=== PATIENT | female | born 1975 | race Hispanic/Latino ===

== ENCOUNTER 2019-09-18 23:09 | Emergency (ER) | payer SELFPAY | END 2019-09-19 00:25 | disposition home or self-care (01) | LOC: ERS 23:09 | DX: M79.622 Pain in left upper arm (principal); S42.302D Unspecified fracture of shaft of humerus, left arm, subsequent encounter for fracture with routine healing; F32.9 Major depressive disorder, single episode, unspecified; Z79.899 Other long term (current) drug therapy; X58.XXXD Exposure to other specified factors, subsequent encounter | CPT/HCPCS: 99281 ==

== ENCOUNTER 2019-09-29 17:47 | Inpatient (IN) | payer OTHER, SELFPAY ==
[2019-09-29] MEDS ORDERED: HYDROcodone/Acetaminophen 10/325 mg Tablet ONE (18:45)
[2019-09-29 19:04] LABS: Bacteria/HPF None Seen HPF (None Seen); Bilirubin Negative (Negative); Blood, Urine Negative (Negative); Clarity Turbid (Clear); Glucose, Urine (Dipstick) Normal (Negative); Leukocyte 250 Leu/uL (Negative); Nitrite Negative (Negative); Protein, Urine (Dipstick) Negative (Neg-Trace); RBC/HPF 0-3 HPF (0-3); Squamous Epithelial 0-3 HPF (0-3); Urobilinogen Normal mg/dL (Less than 2); WBC/HPF 21-50 HPF (0-3)
--- NOTE | 2019-09-29 19:14 | RAD ---
LEFT ELBOW TWO VIEW: 09/29/19 HISTORY: Injury. COMPARISON: None. FINDINGS: No significant joint effusion. No acute displaced fracture or malalignment. Small capitellar osteophyte formation. IMPRESSION: 1. No acute osseous abnormality. 2. Mild dorsal soft tissue swelling about the proximal forearm. POS: HOME
--- NOTE | 2019-09-29 19:17 | RAD ---
LEFT WRIST TWO VIEW: 09/29/19 HISTORY: Injury. COMPARISON: None. FINDINGS: Transversely oriented fracture of the distal radial metaphysis. There is dorsal angulation and displa cement one half shaft width as well as lateral displacement. Mild widening of the scapholunate interval. There is an oblique fracture of the fourth metacarpal dis selwyn diaphysis. Age indeterminate injury of the ulnar styloid process. IMPRESSION: 1. Displaced distal radial metaphyseal fracture as described. 2. Oblique fracture of the ring finger metacarpal neck. 3. Age indeterminate fracture of the ulnar styloid process. 4. Mild widening of the scapholunate interval. POS: HOME
[2019-09-29] MEDS ORDERED: Ondansetron PF 4 MG/2 ML Vial ONE (19:56)
[2019-09-29] MEDS ORDERED: Morphine 4 MG/ML VIAL ONE ×2 (19:56→23:11)
[2019-09-29] MEDS ORDERED: Lidocaine 1% w/Epinephrine 1:100K 20 ML VIAL ONE (19:56)
[2019-09-29] MEDS ORDERED: Lorazepam 2 MG/ML VIAL ONE (21:14)
--- NOTE | 2019-09-29 21:38 | RAD ---
XR Wrist Lt 2 View: 09/29/2019 9:23 PM CLINICAL INDICATION: Post reduction COMPARISON: Prior exam dated September 29, 2019 6:20 PM. FINDINGS: Bones: Mildly displaced distal radial fracture is unchanged in position and alignment. Obliquely terry ented ring finger metacarpal neck fracture is unchanged. Age-indeterminate ulnar styloid process fracture is unchanged. Soft tissue swelling persists. Joints: Joints space is preserved.. Soft Tissue: Persistent soft tissue swelling. IMPRESSION: Stable exam.
--- NOTE | 2019-09-29 22:33 | RAD ---
XR Wrist Lt 2 View: 09/29/2019 10:06 PM CLINICAL INDICATION: Post reduction COMPARISON: Prior exam dated September 29, 2019. FINDINGS: Bones: There is been interval splinting of the distal radius fracture, ulnar styloid fracture and ri ng finger metacarpal fracture. Fracture alignment appears stable. Joints: Joints space is preserved.. Soft Tissue: Normal.. IMPRESSION: Interval splinting.
[2019-09-30 00:15] LABS: #Basophils 0.2 thou/uL (0.0-0.2); #Eosinphils 0.2 thou/uL (0.0-0.7); #Lymphocytes 3.7 thou/uL (1.20-3.40); #Monocytes 0.4 thou/uL (0.11-0.59); #Neutrophils 3.2 thou/uL (1.40-6.50); %Basophils 2.8 % (0.0-1.0); %Eosinophils 3.1 % (0.0-10.0); %Lymphocytes 47.8 % (21.0-51.0); %Neutrophils 41.4 % (42.0-75.0); Mean Corpuscular HGB CONC 32.9 g/dL (32.0-36.0); Mean Corpuscular Hemoglobin 31.5 pg (27.0-31.0); Mean Corpuscular Volume 95.7 fL (78.0-98.0); Platelet Count 128 thou/uL (130-400); Red Blood Cell (RBC) Count 3.16 mill/uL (4.20-5.40); White Blood Cell (WBC) Count 7.6 thou/uL (4.8-10.8)
[2019-09-30 00:36] LABS: ALT (SGPT) 10 U/L (8-55); AST (SGOT) 10 U/L (5-34); Albumin 2.5 g/dL (3.5-5.0); Alkaline Phosphatase 61 U/L (40-110); Anion Gap 8 mmol/L (10-20); BUN (Urea Nitrogen) 11 mg/dL (7.0-18.7); Bilirubin, Total 0.3 mg/dL (0.2-1.2); Calc. Creatinine Clearance 0 mL/min (70-130); Carbon Dioxide 15 mmol/L (22-29); Chloride 120 mmol/L (98-107); Estimated GFR-MDRD Greater than 90; Globulin 1.9 g/dL (2.4-3.5); Glucose 119 mg/dL (70-105); Magnesium 1.2 mg/dL (1.6-2.6); Protein, Total 4.4 g/dL (6.0-8.3); Sodium 141 mmol/L (136-145)
[2019-09-30 00:41] LABS: Calcium 5.4 mg/dL (7.8-10.44); Potassium 2.3 mmol/L (3.5-5.1)
[2019-09-30] MEDS ORDERED: Dextrose 50% Abboject 50 ML SYRINGE SLOW IVP PRN (00:45)
[2019-09-30] MEDS ORDERED: traMADol HCl 50 MG TAB PO PRN (00:45)
[2019-09-30] MEDS ORDERED: Cyclobenzaprine 10 MG TAB PO PRN (00:45)
[2019-09-30] MEDS ORDERED: Dextrose 5% in Water 1,000 ML IV PRN (00:45)
[2019-09-30] MEDS ORDERED: Ondansetron PF 4 MG/2 ML Vial IVP PRN (00:45)
[2019-09-30] MEDS ORDERED: Ondansetron ODT 4 MG TAB PO PRN (00:45)
[2019-09-30] MEDS ORDERED: Acetaminophen 500 MG TAB PO SCH (01:00)
[2019-09-30] MEDS ORDERED: Ketorolac Tromethamine 30 MG/ML VIAL IVP SCH (01:00)
[2019-09-30 01:04] LABS: Phosphorus 2.8 mg/dL (2.3-4.7)
[2019-09-30] MEDS: cefTRIAXone\\ROCEPHIN 1 GM in Sodium Chloride 0.9% 100 ML IVPB SCH (01:05)
--- NOTE | 2019-09-30 01:25 | HP ---
REQUESTING PHYSICIAN: Dr. Bauer. ATTENDING SURGEON: Dr. Lara. CONSULTATION: Orthopedics, Dr. Kwon. HISTORY OF PRESENT ILLNESS: The patient is a 44-year-old woman, who fell in the shower this afternoon. She presented herself to the Emergency Department, where she underwent evaluation and examination and was noted to have a left distal radius fracture. The ER attempted closed reduction with minimal improvement, at which time, Orthopedics was consulted, and we were asked to evaluate the patient for admission for surgical intervention tomorrow. The patient was also noted to have a minimally displaced left ring finger metacarpal fracture also. The patient had no reported loss of consciousness or hitting her head. By ER report, after receiving 4 mg of morphine, the patient had a vasovagal episode, requiring some fluids. The patient had an EKG that showed sinus rhythm without ectopy. The patient is primarily Wallisian speaking. We were able to use interpreters. ALLERGIES: NONE. CURRENT MEDICATION: Fluoxetine. PAST MEDICAL HISTORY: Depression. PAST SURGICAL HISTORY: Cholecystectomy and . SOCIAL HISTORY: The patient lives at home with family. She drinks occasionally on the weekends. Denies drug or tobacco use. REVIEW OF SYSTEMS: A 10-point review of systems is negative except otherwise stated. PHYSICAL EXAMINATION: VITAL SIGNS: Blood pressure 98/61, heart rate 70, respirations 18, oxygen saturation is 96% on room air, and temperature is 97.9. GENERAL: The patient is resting comfortably in bed. She was moved from her original exam room in the rapid medical examination area to the main part of the ER after her vagal episodes. Her chief complaint now is just her left wrist pain. Brendon Coma Scale is 14, -1 for eye opening, but the patient does open her eyes and answer appropriately. HEENT: Head is normocephalic and atraumatic. Eyes; extraocular motion intact. PERRLA bilaterally. Ears are atraumatic without discharge. Nose is atraumatic without discharge. Oropharynx is clear. NECK: Nontender. Trachea is midline. No JVD. CHEST: Clear to auscultation with good inspiratory and expiratory effort. HEART: Regular rate and rhythm. ABDOMEN: Soft, flat, nontender. Active bowel sounds. PELVIS: Stable. EXTREMITIES: Neurovascularly intact x4. Left upper extremity is immobilized in a sling with a splint. Capillary refill on this extremity again is less than 3 seconds. The patient is able to move all five of her digits. BACK: By report is atraumatic and nontender. LABORATORY FINDINGS: White blood cell count 7.6, hemoglobin 10.0, hematocrit 30.3, and platelets 128. Chemistry is pending. Bedside glucose is 159. Urinalysis is positive for leukocyte esterase and 21 to 50 wbc's. RADIOGRAPHS: Views of the left wrist showed a displaced distal radius metaphyseal fracture and an oblique fracture of the ring finger metacarpal neck. There is mild widening of the scapholunate interval. Views of the left elbow showed no acute osseous abnormality. ASSESSMENT: 1. Status post fall. 2. Left distal radius fracture. 3. Left ring finger metacarpal fracture. 4. Vasovagal incident after receiving morphine in the Emergency Department. 5. Urinary tract infection, uncomplicated, present on admission. PLAN: Plan will be to admit the patient to the surgical floor. She has been getting a fluid bolus here in the Emergency Department. Again, her EKG showed a normal sinus rhythm. Remainder of her labs is still pending. She will have pain control, pulmonary toilet, gastritis, and mechanical VTE prophylaxis. We will start her on IV Rocephin. She will be n.p.o. after midnight. We will avoid narcotic pain medications tonight. The ER has notified Dr. Kwon to the patient. The patient will be discussed with Dr. Lara after this dictation. Job ID: [id number]
[2019-09-30] MEDS ORDERED: Potassium Chloride 40 MEQ in Premix Bag 1 BAG IVPB SCH (01:45)
[2019-09-30] MEDS ORDERED: Calcium Chloride 13.6 MEQ in Sodium Chloride 0.9% 100 ML IVPB SCH (02:00)
[2019-09-30] MEDS: Lactated Ringer's 1,000 ML IV SCH ×2 (02:03→14:20)
[2019-09-30] MEDS: traMADol HCl 50 MG TAB PO PRN ×2 (02:45→22:59)
[2019-09-30] MEDS ORDERED: SODIUM CHLORIDE 0.9% IVPB SCH (03:00)
[2019-09-30] MEDS ORDERED: MAGNESIUM SULFATE IVPB SCH (03:00)
[2019-09-30] MEDS ORDERED: POTASSIUM CHLORIDE IVPB SCH (03:00)
[2019-09-30 05:49] LABS: #Basophils 0.1 thou/uL (0.0-0.2); #Eosinphils 0.1 thou/uL (0.0-0.7); #Lymphocytes 2.2 thou/uL (1.20-3.40); #Monocytes 0.4 thou/uL (0.11-0.59); #Neutrophils 3.2 thou/uL (1.40-6.50); %Basophils 0.9 % (0.0-1.0); %Eosinophils 2.1 % (0.0-10.0); %Lymphocytes 36.6 % (21.0-51.0); %Monocytes 6.2 % (0.0-10.0); %Neutrophils 54.3 % (42.0-75.0); Hemoglobin 9.9 g/dL (12.0-16.0); Mean Corpuscular HGB CONC 32.3 g/dL (32.0-36.0); Mean Corpuscular Hemoglobin 31.6 pg (27.0-31.0); Mean Platelet Volume 10.4 fL (7.4-10.4); Platelet Count 129 thou/uL (130-400); RBC Distribution Width 12.3 % (11.5-14.5); Red Blood Cell (RBC) Count 3.13 mill/uL (4.20-5.40); White Blood Cell (WBC) Count 5.9 thou/uL (4.8-10.8)
[2019-09-30 06:01] LABS: Phosphorus 2.4 mg/dL (2.3-4.7)
[2019-09-30] MEDS: Ketorolac Tromethamine 30 MG/ML VIAL IVP SCH ×4 (06:10→22:58)
[2019-09-30] MEDS: Acetaminophen 500 MG TAB PO SCH ×4 (06:11→22:59)
[2019-09-30 07:24] LABS: Calc. Creatinine Clearance 0 mL/min (70-130); Estimated GFR-MDRD Greater than 90
[2019-09-30 08:01] LABS: Chloride 109 mmol/L (98-107)
[2019-09-30 08:04] LABS: Anion Gap 18 mmol/L (10-20)
[2019-09-30 08:08] LABS: Magnesium 2.5 mg/dL (1.6-2.6)
[2019-09-30 08:15] LABS: BUN (Urea Nitrogen) 13 mg/dL (7.0-18.7); Carbon Dioxide 13 mmol/L (22-29)
[2019-09-30 08:16] LABS: Glucose 118 mg/dL (70-105); Sodium 135 mmol/L (136-145)
[2019-09-30 08:17] LABS: Potassium 4.9 mmol/L (3.5-5.1)
[2019-09-30] MEDS: Famotidine 20 MG TAB PO SCH ×2 (09:00→23:00)
[2019-09-30] MEDS: FLUoxetine HCl 20 MG CAP PO SCH (09:01)
[2019-09-30] MEDS ORDERED: Lidocaine 1% PF 5 ML VIAL ONE (11:51)
[2019-09-30] MEDS ORDERED: Ketorolac Tromethamine 30 MG/ML VIAL ONE (11:51)
[2019-09-30] MEDS ORDERED: PROPOFOL 200 MG/20 ML VIAL ONE (11:51)
[2019-09-30] MEDS ORDERED: Dexamethasone 20 MG/5 ML VIAL ONE (11:51)
[2019-09-30] MEDS ORDERED: Ondansetron PF 4 MG/2 ML Vial ONE (11:51)
[2019-09-30] MEDS ORDERED: Neomycin-Polymyxin 1 ML AMP ONE (15:16)
[2019-09-30] MEDS ORDERED: Fentanyl 100 MCG/2 ML VIAL ONE ×2 (15:34→17:11)
[2019-09-30] MEDS ORDERED: Lidocaine 1% w/Epinephrine 1:100K 20 ML VIAL ONE (16:25)
[2019-09-30] MEDS ORDERED: Bupivacaine 0.25% HCL 30 ML VIAL ONE (16:26)
[2019-09-30] MEDS ORDERED: HYDROmorphone 2 MG/ML VIAL ONE (16:32)
[2019-09-30] MEDS ORDERED: PACU-Morphine 4MG/ML VIAL SLOW IVP PRN (16:38)
[2019-09-30] MEDS ORDERED: Promethazine HCl 25 MG/ML VIAL IM PRN (16:38)
[2019-09-30] MEDS ORDERED: Morphine Sulfate 2 MG/ML SYRINGE SLOW IVP PRN (16:38)
[2019-09-30] MEDS ORDERED: Ondansetron HCl/PF 4 MG/2 ML Vial IVP PRN (16:38)
[2019-09-30] MEDS ORDERED: Promethazine HCl 25 MG/ML VIAL SLOW IVP PRN (16:38)
[2019-09-30] MEDS ORDERED: HYDROmorphone 2 MG/ML VIAL SLOW IVP PRN (16:38)
[2019-09-30] MEDS ORDERED: traMADol HCl 50 MG TAB ONE (17:27)
--- NOTE | 2019-09-30 19:39 | OP ---
DATE OF PROCEDURE: 09/30/2019 PREOPERATIVE DIAGNOSIS: Displaced left distal radius fracture. POSTOPERATIVE DIAGNOSIS: Displaced left distal radius fracture PROCEDURE PERFORMED: Open reduction and internal fixation, left distal radius fracture. ANESTHESIA: General. TECHNIQUE: The patient was given preoperative IV antibiotics. She was taken to the operating room, placed in the supine position. Satisfactory general anesthesia was performed. The left upper extremity was sterilely prepped and draped in usual fashion. After exsanguination, tourniquet was raised to 250 mmHg. Longitudinal incision was made over the volar aspect of the left wrist over the area of the flexor carpi radialis. Blunt and sharp dissection was made down to the tendon, which was retracted laterally. The neurovascular structures were retracted radially. Periosteal elevation was performed on the distal radius. The radius was significantly displaced, but using a Drummond elevator and using traction and a Hohmann. The fracture was reduced and then internally fixated with a three hole since these distal radial locking plate using a 2.7 cortical screw in the shaft, six 2.4 locking screws distally, and 2 more 2.4 locking screws more proximally in the shaft. This was all performed under fluoroscopic visualization and then provided. It showed excellent alignment of the distal radius and proper placement of the plate and screws. The wound was then irrigated with antibiotic solution. It was closed using 0 Vicryl for the deeper tissue and skin was closed with 3-0 Rapide. The wound was then infiltrated with 0.25% Marcaine with epinephrine. Total of 20 mL was utilized. Sterile dressing was applied. The patient was placed in a wrist immobilizer. Tourniquet was released. The patient was awakened, extubated, and transferred to recovery room in stable condition. ESTIMATED BLOOD LOSS: Minimal. COMPLICATIONS: None. TOURNIQUET TIME: 33 minutes. DISCHARGE MEDICATION: Tylenol No. 4 one every 4 to 6 hours as needed for pain #40. Follow up in my office in 9 to 11 days. Job ID: [id number]
[2019-09-30] MEDS ORDERED: FLU VACC QS2019-20(6MOS UP)/PF 60 MCG/0.5 ML SYRINGE IM ONE (21:00)
[2019-10-01] MEDS: cefTRIAXone\\ROCEPHIN 1 GM in Sodium Chloride 0.9% 100 ML IVPB SCH (00:36)
[2019-10-01] MEDS: Ketorolac Tromethamine 30 MG/ML VIAL IVP SCH (04:42)
[2019-10-01] MEDS: traMADol HCl 50 MG TAB PO PRN ×2 (04:43→10:52)
[2019-10-01] MEDS: Acetaminophen 500 MG TAB PO SCH (05:43)
--- NOTE | 2019-10-01 06:06 | PRG ---
DATE OF SERVICE: 10/01/2019 SUBJECTIVE: The patient is currently on the surgical floor. She is status post a ground level fall, which she sustained a displaced left distal radius fracture. This afternoon, she underwent open reduction and internal fixation of same. She tolerated that procedure. Postoperatively, she is tolerating a diet. Her pain is controlled. She is also undergoing treatment for urinary tract infection. Her sensitivities came back, and her medications were adjusted and transitioned to orals. PHYSICAL EXAMINATION: VITAL SIGNS: Stable. The patient is afebrile. GENERAL: The patient is resting comfortably in bed. She is asleep. I did not awaken her. She appears in no distress. RESPIRATORY: Her respirations appeared nonlabored. Her splint is clean, dry, and intact. ASSESSMENT: 1. Status post ground level fall. 2. Status post open reduction and internal fixation of a left distal radius fracture. 3. Left ring finger metacarpal fracture. 4. Urinary tract infection, uncomplicated, present on admission. PLAN: Plan will be to continue supportive care, and the patient will likely be discharged today. Antibiotics per sensitivities. Job ID: [id number]
--- NOTE | 2019-10-01 08:19 | PRG ---
DATE OF SERVICE: SUBJECTIVE: Ms. Day is a 44-year-old female, status post ground level fall. She sustained left distal radius fracture and new urinary tract infection. The patient is being treated with urinary tract infection with ceftriaxone. The patient was put on n.p.o., ready for surgery this late afternoon. The patient reports pain is well controlled. Otherwise, she raised no concern. OBJECTIVE: GENERAL: The patient is lying down in bed comfortable with no acute respiratory distress. VITAL SIGNS: Temperature 98.3, heart rate 73, respiratory rate 14, O2 saturation 94% on room air, and blood pressure is 119/80. LUNGS: Clear bilaterally. HEART: Regular rate and rhythm. ABDOMEN: Soft, nondistended. EXTREMITIES: Neurovascularly intact x4. Left arm splint is on; dry, clean, and intact. Neurovascularly intact. ASSESSMENT: 1. Status post ground level fall. 2. Left distal radius fracture. 3. Left ring finger metacarpal fracture. 4. Urinary tract infection, treated. PLAN: Continue supportive care. Continue pain control. Continue n.p.o. Waiting for Orthopedic take her to the OR for left radius and left ring finger metacarpal fracture later today. Anticipate discharge home tomorrow. Job ID: [id number]
[2019-10-01] MEDS ORDERED: Sulfameth/Trimethoprim DS 800-160mg TAB PO SCH (09:00)
[2019-10-01] MEDS: FLUoxetine HCl 20 MG CAP PO SCH (09:24)
[2019-10-01] MEDS: Famotidine 20 MG TAB PO SCH (09:24)
[2019-10-01 11:58] VITALS: BP 133/81; TEMP 98.5
--- NOTE | 2019-10-02 08:16 | RAD ---
FOUR VIEWS LEFT WRIST: DATE: 09/30/2019. COMPARISON: 09/29/2019. HISTORY: Fracture status post ORIF. FINDINGS: Previously noted distal left radial fracture has been treated with a screw and plate fixation. Commi nuted fracture of distal radius again noted. Anatomic alignment of fracture site. IMPRESSION: Three intraoperative images of the left wrist as detailed above. POS: [facility]
--- NOTE | 2019-10-03 05:12 | DIS ---
DATE OF ADMISSION: 09/30/2019 DATE OF DISCHARGE: 10/01/2019 ADMISSION DIAGNOSES: 1. Status post ground level fall. 2. Left distal radius fracture. 3. Left ring finger metacarpal fracture. 4. Urinary tract infection. DISCHARGE DIAGNOSES: 1. Status post ground level fall. 2. Left distal radius fracture. 3. Status post open reduction and internal fixation of left distal radius fracture. 4. Left ring finger metacarpal fracture, status post left ring finger metacarpal fracture. 5. Urinary tract infection, treated. CONSULTING PHYSICIAN: Dr. Kwon. PROCEDURE: Open reduction and internal fixation of left distal radius fracture. HOSPITAL COURSE: Ms. Day is a 44-year-old female, status post ground level fall. She sustained left distal radius fracture and left ring finger metacarpal fracture and new urinary tract infection. The patient underwent ORIF of left distal radius fracture and left ring finger metacarpal fracture, is conservative treatment. Urinary tract infection was treated with ceftriaxone. Postop, the patient tolerated the procedure well. Postop, the patient is doing good. Pain is well controlled. She tolerated with her regular diet. Her vital signs stable. Developed no fever or shortness of breath. PHYSICAL EXAMINATION: GENERAL: The patient is lying in bed comfortable with no acute respiratory distress. VITAL SIGNS: Temperature 98.3, heart rate 73, respiratory rate 14, O2 saturation 95% on room air, and blood pressure 112/80. LUNGS: Clear bilaterally. HEART: Regular rate and rhythm. ABDOMEN: Soft, nondistended. EXTREMITIES: Neurovascularly intact x4. Left hand is dry, clean, and intact. Neurovascularly intact. NEUROLOGIC: No focal neurology deficits. DISCHARGE DISPOSITION: Home. DISCHARGE CONDITION: Good. DISCHARGE INSTRUCTIONS: The patient is to take medication as directed. The patient is to see Dr. Kwon in 10 to 14 days. The patient is to have regular diet. DISCHARGE MEDICATIONS: 1. Tramadol. 2. Tylenol. 3. Ibuprofen. Job ID: [id number]
== END 2019-10-01 13:00 | disposition home or self-care (01) | DRG 511 ==
LOC: ERS 17:47 → OBSVTOIN 09-30 00:44 → SURG A 09-30 00:44
PROVIDERS: ADMIT Specialist; ATTEND Specialist
PROC: 0PSJ04Z Reposition Left Radius with Internal Fixation Device, Open Approach (ICD-10-PCS; principal; 2019-09-30)
DX: S52.502A Unspecified fracture of the lower end of left radius, initial encounter for closed fracture (principal); N39.0 Urinary tract infection, site not specified; S62.303A Unspecified fracture of third metacarpal bone, left hand, initial encounter for closed fracture; W18.39XA Other fall on same level, initial encounter; F32.9 Major depressive disorder, single episode, unspecified; Y93.9 Activity, unspecified; Z90.49 Acquired absence of other specified parts of digestive tract
CPT/HCPCS: 29125; 36415; 36416; 76000; 80053; 81003; 81015; 83735; 84100; 84484; 85025; 87077; 87086; 87186; 90471; 90686; 93005; 96361; 96374; 96375; 96376; C1713; G0008; J0696; J1100; J1170; J1885; J2001; J2060; J2270; J2405; J2704; J3010; J3475; J3480; J3490; J7050; S0020